=== PATIENT | female | born 1990 | race Two or more races ===

== ENCOUNTER 2023-05-11 08:27 | Outpatient (OUT) | payer OTHER, SELFPAY ==
[2023-05-11 08:56] LABS: Basophils Percent Auto 0.4 % (0.2-2.0); Eosinophils Absolute Auto 0.1 10^3/uL (0.0-0.7); Eosinophils Percent Auto 1.3 % (0.9-7.0); Hematocrit 32.5 % (36.0-48.0); Hemoglobin 10.8 g/dL (12.0-16.0); Immature Granulocytes Abs Auto 0.03 10^3/uL (0.00-0.03); Immature Granulocytes Pct Auto 0.3 % (0.0-0.5); Lymphocytes Absolute Auto 1.8 10^3/uL (1.2-3.8); Lymphocytes Percent Auto 18.9 % (20.5-60.0); Mean Corpuscular HGB Conc 33.2 g/dL (29.9-35.2); Mean Corpuscular Hemoglobin 30.9 pg (26.7-34.0); Mean Corpuscular Volume 93.1 fL (81.0-99.0); Mean Platelet Volume 9.7 fL (9.5-13.5); Monocytes Absolute Auto 0.6 10^3/uL (0.3-0.8); Monocytes Percent Auto 5.7 % (1.7-12.0); Neutrophils Absolute Auto 7.2 10^3/uL (1.4-6.5); Neutrophils Percent Auto 73.4 % (43.0-75.0); Platelet Count 279 10^3/uL (150-450); Red Blood Count 3.49 10^6/uL (4.20-5.40); Red Cell Distribution Width 12.9 % (11.0-15.0); White Blood Count 9.8 10^3/uL (4.0-11.0)
[2023-05-11 09:08] LABS: Glucose 1 Hour 123 mg/dL
== END 2023-05-11 08:28 ==
LOC: LAB 08:27
PROVIDERS: Visit Provider Physician Assistant
DX: Z34.90 Encounter for supervision of normal pregnancy, unspecified, unspecified trimester (principal)
CPT/HCPCS: 36415; 82950; 85025

== ENCOUNTER 2023-06-29 17:17 | Outpatient (OUT) | payer OTHER, SELFPAY ==
--- NOTE | 2023-06-29 17:05 | US_ITS ---
[address] [address] Patient Name: SUYAPA STEPHENSON MRN: [id number] date: 1990 Sex: F Assigned Patient Location: [facility] Current Patient Location: Accession/Order Number: [id number] Exam Date: 06/29/2023 17:06 Report Date: 07/01/2023 15:25 At the request of: JASON SALGADO Procedure: US OB BPP w non-stress EXAMINATION: US OB BPP w non-stress HISTORY: INCONSISTENT SIZE FOR DATES COMPARISON: Ultrasound transvaginal 01/09/2023 TECHNIQUE: Ultrasound biophysical profile was performed in the radiology department. BREATHING MOVEMENTS: 2.0 GROSS BODY MOVEMENTS: 2.0 TONE: 2.0 QUALITATIVE AMNIOTIC FLUID VOLUME: 2.0 PRESENTATION: CEPHALIC HEART RATE: 138.5 bpm bpm. AMNIOTIC FLUID VOLUME: 11.1 cm GESTATIONAL AGE: 32 weeks 6 days CONCLUSION: Total biophysical profile score 8.0. Electronically authenticated by: MEDARDO DOSHI Date: 07/01/2023 15:25
[2023-06-29 17:27] VITALS: BP 117/73; PULSE 82
== END 2023-06-29 17:46 | disposition home or self-care (01) ==
LOC: US 17:18 → FBC 17:19
PROVIDERS: Visit Provider Obstetrics & Gynecology
DX: O26.843 Uterine size-date discrepancy, third trimester (principal); Z3A.32 32 weeks gestation of pregnancy
CPT/HCPCS: 76818

== ENCOUNTER 2023-07-02 16:51 | Outpatient (OUT) | payer OTHER, SELFPAY ==
[2023-07-02 17:16] VITALS: BP 122/58; PULSE 78
== END 2023-07-02 18:09 | disposition home or self-care (01) ==
LOC: FBCO 16:54 → FBC 17:07
PROVIDERS: Visit Provider Obstetrics & Gynecology
DX: O26.893 Other specified pregnancy related conditions, third trimester (principal); Z3A.33 33 weeks gestation of pregnancy
CPT/HCPCS: 59025

== ENCOUNTER 2023-07-06 17:00 | Outpatient (OUT) | payer OTHER, SELFPAY ==
--- NOTE | 2023-07-06 17:00 | US_ITS ---
[address] [address] Patient Name: SUYAPA STEPHENSON MRN: [id number] date: 1990 Sex: F Assigned Patient Location: [facility] Current Patient Location: Accession/Order Number: [id number] Exam Date: 07/06/2023 17:06 Report Date: 07/07/2023 15:04 At the request of: JASON SALGADO Procedure: US OB BPP w non-stress EXAMINATION: US OB BPP w non-stress HISTORY: INCONSISTENT SIZE FOR DATES COMPARISON: Ultrasound biophysical 06/29/2023 TECHNIQUE: Ultrasound biophysical profile was performed in the radiology department. BREATHING MOVEMENTS: 2.0 GROSS BODY MOVEMENTS: 2.0 TONE: 2.0 QUALITATIVE AMNIOTIC FLUID VOLUME: 2.0 PRESENTATION: CEPHALIC HEART RATE: 149.2 bpm bpm. AMNIOTIC FLUID VOLUME: 14.9 cm GESTATIONAL AGE: 34 weeks 2 days CONCLUSION: Total biophysical profile score 8.0. Electronically authenticated by: MEDARDO DOSHI Date: 07/07/2023 15:04
[2023-07-06 17:24] VITALS: BP 144/84; PULSE 83
== END 2023-07-06 17:47 | disposition home or self-care (01) ==
LOC: US 17:08 → FBC 17:09
PROVIDERS: Visit Provider Obstetrics & Gynecology
DX: O26.849 Uterine size-date discrepancy, unspecified trimester (principal); O16.9 Unspecified maternal hypertension, unspecified trimester; Z3A.00 Weeks of gestation of pregnancy not specified
CPT/HCPCS: 76818

== ENCOUNTER 2023-07-09 16:52 | Outpatient (OUT) | payer OTHER, SELFPAY ==
[2023-07-09 16:58] VITALS: BP 111/57; PULSE 86
== END 2023-07-09 17:35 | disposition home or self-care (01) ==
LOC: FBCO 16:52 → FBC 16:53
PROVIDERS: Visit Provider Obstetrics & Gynecology
DX: O26.843 Uterine size-date discrepancy, third trimester (principal); Z3A.00 Weeks of gestation of pregnancy not specified
CPT/HCPCS: 59025

== ENCOUNTER 2023-07-13 17:05 | Outpatient (OUT) | payer OTHER, SELFPAY ==
--- NOTE | 2023-07-13 | US_ITS ---
[address] [address] Patient Name: SUYAPA STEPHENSON MRN: [id number] date: 1990 Sex: F Assigned Patient Location: [facility] Current Patient Location: Accession/Order Number: [id number] Exam Date: 07/13/2023 17:08 Report Date: 07/14/2023 15:08 At the request of: JASON SALGADO Procedure: US OB growth EXAMINATION: US OB growth HISTORY: SIZE INCONSISTENT WITH DATES O28.849 COMPARISON: No relevant comparison available. FINDINGS: Heart Rate: 150.8 bpm Number: 1.0 Position: CEPHALIC Amniotic Fluid Volume: 16.2 cm Maximum Vertical Pocket: 6.4 cm BIOMETRY: BPD: 8.6 cm cm; 34 weeks 6 days HC: 31.7 cmcm; 35 weeks 4 days AC: 32.4 cm cm; 36 weeks 3 days FL: 6.6 cm cm; 34 weeks 0 days EFW: 2700.0 grams; 55% FL/AC: 20.4 FL/BPD: 76.5 HC/AC: 1.0 GESTATIONAL AGE: Age by EDC: 35 weeks 2 days NATE by EDC 08/15/2023: Age by US: 35 weeks 2 days NATE by US: 08/15/2023 US/US OB growth IMPRESSION: 1. Single live intrauterine with growth detailed above. Electronically authenticated by: MEDADRO DOSHI Date: 07/14/2023 15:08
--- NOTE | 2023-07-13 | US_ITS ---
[address] [address] Patient Name: SUYAPA STEPHENSON MRN: [id number] date: 1990 Sex: F Assigned Patient Location: [facility] Current Patient Location: Accession/Order Number: [id number] Exam Date: 07/13/2023 17:08 Report Date: 07/14/2023 15:10 At the request of: JASON SALGADO Procedure: US OB BPP w non-stress EXAMINATION: US OB BPP w non-stress HISTORY: SIZE INCONSISTENT WITH DATES O26.849 COMPARISON: Ultrasound OB biophysical 07/06/2023 TECHNIQUE: Ultrasound biophysical profile was performed in the radiology department. BREATHING MOVEMENTS: 2 GROSS BODY MOVEMENTS: 2 TONE: 2 QUALITATIVE AMNIOTIC FLUID VOLUME: 2 PRESENTATION: CEPHALIC HEART RATE: 150.8 bpm bpm. AMNIOTIC FLUID VOLUME: 16.2 cm GESTATIONAL AGE: 35 weeks 2 days CONCLUSION: Total biophysical profile score 8. Electronically authenticated by: MEDARDO DOSHI Date: 07/14/2023 15:10
[2023-07-13 17:46] VITALS: BP 145/83; PULSE 80
== END 2023-07-13 18:15 | disposition home or self-care (01) ==
LOC: US 17:06 → FBC 17:08
PROVIDERS: Visit Provider Obstetrics & Gynecology
DX: O26.843 Uterine size-date discrepancy, third trimester (principal); Z3A.35 35 weeks gestation of pregnancy
CPT/HCPCS: 76816; 76818

== ENCOUNTER 2023-07-16 19:26 | Inpatient (IN) | payer OTHER, SELFPAY ==
[2023-07-16] VITALS (15 sets, daily range): BP systolic 113–190; BP diastolic 66–96; PULSE 67–86; RESP 16–20; TEMP 36.3–36.8; O2SAT 97–98
[2023-07-16] MEDS: LABETALOL HCL 200 MG TABLET PO (18:27)
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
[2023-07-16 18:37] LABS: Basophils Percent Auto 0.4 % (0.2-2.0); Eosinophils Absolute Auto 0.1 10^3/uL (0.0-0.7); Eosinophils Percent Auto 0.9 % (0.9-7.0); Hematocrit 33.1 % (36.0-48.0); Hemoglobin 11.2 g/dL (12.0-16.0); Immature Granulocytes Abs Auto 0.02 10^3/uL (0.00-0.03); Immature Granulocytes Pct Auto 0.2 % (0.0-0.5); Lymphocytes Absolute Auto 2.2 10^3/uL (1.2-3.8); Lymphocytes Percent Auto 26.7 % (20.5-60.0); Mean Corpuscular HGB Conc 33.8 g/dL (29.9-35.2); Mean Corpuscular Hemoglobin 31.5 pg (26.7-34.0); Mean Platelet Volume 10.5 fL (9.5-13.5); Monocytes Absolute Auto 0.9 10^3/uL (0.3-0.8); Monocytes Percent Auto 11.1 % (1.7-12.0); Neutrophils Absolute Auto 4.9 10^3/uL (1.4-6.5); Neutrophils Percent Auto 60.7 % (43.0-75.0); Platelet Count 236 10^3/uL (150-450); Red Blood Count 3.56 10^6/uL (4.20-5.40); Red Cell Distribution Width 13.2 % (11.0-15.0); White Blood Count 8.1 10^3/uL (4.0-11.0)
[2023-07-16 18:50] LABS: Alanine Aminotransferase 22 U/L (14-59); Aspartate Amino Transferase 15 U/L (15-37); Lactate Dehydrogenase 252 U/L (81-234); Uric Acid 4.7 mg/dL (2.6-6.0)
[2023-07-16 18:52] LABS: Partial Thromboplastin Time 27.1 sec (22.3-36.2); Prothrombin Time 9.8 sec (9.0-11.6)
[2023-07-16 18:54] LABS: INR <0.93
[2023-07-16] MEDS: BETAMETHASONE ACE/BETAMETHASONE SOD PHOS 30 MG/5 ML 12 MG IM (19:42)
[2023-07-16 19:50] LABS: Bilirubin Urine NEGATIVE (NEGATIVE); Blood Urine NEGATIVE (NEGATIVE); Clarity Urine CLEAR (CLEAR); Color Urine LT. YELLOW (YELLOW); Glucose Urine UA NEGATIVE (NEGATIVE); Ketones Urine NEGATIVE (NEGATIVE); Leukocyte Esterase Urine NEGATIVE (NEGATIVE); Nitrite Urine NEGATIVE (NEGATIVE); Protein Urine NEGATIVE (NEG/TRACE); Urobilinogen Urine 0.2 EU/dL (0.2-1.0); pH Urine 6.5 (5.0-9.0)
[2023-07-16 19:58] LABS: Bacteria Urine TRACE #/HPF (NONE SEEN); Mucus Urine NONE SEEN (NONE SEEN); RBC Urine 0-2 #/HPF (0-2); Squamous Epithelial Cell Urine MODERATE #/LPF (NONE/RARE); WBC Urine 0-2 #/HPF (NONE SEEN)
[2023-07-16 19:59] LABS: Cast Seen? NONE SEEN #/LPF (NONE SEEN); Crystals Seen? None Seen #/HPF (None Seen); Urine Culture Indicated NO
--- NOTE | 2023-07-16 19:59 | PM.OBHP ---
OB - H&P: HPI History of Present Illness Chief complaint: FBC NST : 2 Para: 1 Date of last menstrual period: 10/09/2022 Gestational age based on last menstrual period: 35 2/7wks Indications for induction: maternal hypertension (chronic htn with superimposed severe preeclampsia) History of Present Dating criteria: LMP confirmed by 1st trimester US care: good care Ultrasounds: normal 1st trimester US complications: preeclampsia (severe) Medical complications OB: none Review of Systems ROS Status of ROS 10 or more systems reviewed and unremarkable except as noted in history and below Meds Home Medications and Allergies Home Medications Medication Instructions Recorded Confirmed Type aspirin 81 mg capsule 81 mg PO DAILY 06/29/23 06/29/23 History labetalol 100 mg tablet 100 mg PO BID 06/29/23 06/29/23 History vit no.95-ferrous 1 tab PO DAILY 06/29/23 06/29/23 History fumarate 28 mg-folic acid 800 mcg tablet ( Multivitamins) Allergies Allergy/AdvReac Type Severity Reaction Status Date / Time coconut Allergy Verified 06/29/23 17:21 rodolfo Allergy Verified 06/29/23 17:21 peanut Allergy Verified 06/29/23 17:21 pecan nut Allergy Verified 06/29/23 17:21 Exam Constitutional Vital Signs, click to edit/add: Last Vital Signs Temp 98.2 F 07/16/23 19:35 Pulse 86 07/16/23 19:35 Resp 18 07/16/23 19:35 BP 139/95 H 07/16/23 19:35 Documenting provider has reviewed patient's vital signs: yes Common normals: no apparent distress Respiratory Common normals: normal respiratory effort and clear to auscultation bilaterally Cardio Common normals: regular rate and regular rhythm GI Common normals: Normal to inspection, nondistended, normoactive bowel sounds present Common normals: no CVA tenderness Extremity Common normals: no calf tenderness Results Labs Labs: Short CBC 07/16/23 Range/Units 18:30 WBC 8.1 (4.0-11.0) 10^3/uL Hgb 11.2 L (12.0-16.0) g/dL Hct 33.1 L (36.0-48.0) % Plt Count 236 (150-450) 10^3/uL Liver Function 07/16/23 Range/Units 18:30 AST 15 (15-37) U/L ALT 22 (14-59) U/L Urine 07/16/23 Range/Units 19:28 Urine Color Lt. yellow (YELLOW) Urine Clarity Clear (CLEAR) Urine pH 6.5 (5.0-9.0) Ur Specific [place] 1.010 (1.005-1.025) Urine Protein Negative (NEG/TRACE) mg/dL Urine Glucose (UA) Negative (NEGATIVE) mg/dL OB - A/P Assessment and Plan (1) Chronic hypertension affecting : (2) Severe pre-eclampsia: Plan iup at 35 2/7wks, chronic htn with superimposed severe preeclampsia-pt presents for nst with elevated bp, pt was given labetolol oral, pt continued to have elevated bp, pt complains of vision changes, denies mejia, epigastric pain. pih panel wnl, discussed with patient, will perform section, mmc reviewed, procedure reviewed, celestone given, will start magnesium for 24hrs after delivery
[2023-07-16] MEDS: CITRIC ACID/SODIUM CITRATE 30 ML SOLUTION ORACIT SHOHL'S SOLN PO (20:12)
[2023-07-16] MEDS: LACTATED RINGER'S SOLUTION 1,000 ML 125 ML IV (20:13)
--- NOTE | 2023-07-16 20:15 | PC.NURSE ---
1899: DR SALGADO CALLED AND BP'S REPORTED WITH LAB RESULTS ALSO- ORDERS RECEIVED TO ADMIT AND PREPARE FOR DELIVERY. REPORT TO Annie PANTOJA RN. 1914; TRANSFERRED TO RM 251 AND ADMITTED.
[2023-07-16] MEDS: FAMOTIDINE/PF 20 MG/2 ML VIAL IV (20:26)
[2023-07-16] MEDS: CEFAZOLIN SODIUM/DEXTROSE,ISO 2 GM/50 ML PIGGYBACK IV (20:27)
[2023-07-16] MEDS: LACTATED RINGER'S SOLUTION 1,000 ML 50 ML IV (21:10)
--- NOTE | 2023-07-16 21:35 | PM.ONB ---
Brief Operative Note Date of procedure: 07/16/23 Pre-op diagnosis: iup at 35 2/7wks, chronic htn with superimposed preeclampsia, previous c/s Post-op diagnosis: same as pre-op Procedure: NAME OF PROCEDURE: [ section with bilateral salpingectomy ] PROCEDURE: Patient was taken back to the Operating Room where she was given a spinal anesthesia with Duramorph without difficulty. She was prepped and draped in the normal sterile fashion. A Pfannenstiel skin incision was then made 2?cm above the symphysis pubis and carried down to underlying rectus fascia using a Bovie. The fascia was incised in the midline and extended laterally using Gary scissors. Two Danielle clamps were placed on the superior aspect of the fascia and dissected off the underlying rectus muscles. The same was performed on the inferior aspect as well. The muscles were then in the midline. Peritoneum was identified and entered bluntly. The peritoneum was then extended superiorly and inferiorly with good visualization of the bladder. The bladder blade was inserted. Vesicouterine peritoneum was identified, tented up, and entered with Metzenbaum scissors. A bladder flap was then created digitally. The bladder blade was reinserted. A low transverse incision was made on the patient's uterus and extended laterally digitally. The was then delivered atraumatically after the bladder blade was removed in the cephalic position. The cord was clamped and cut. Cord blood was obtained. The infant was handed off to awaiting team. The patient's placenta was spontaneously delivered. The uterus was then exteriorized. The uterus was cleared of all clots and debris. The bladder blade was reinserted. The patient's uterine incision was closed using #0 Vicryl in a running lock fashion. Excellent hemostasis was assured.? The rt tube was identified and grasped with babock, the ligasure was used to transect and ligate the tube in its entirity, this was done on the contralateral side as well. The uterus was then returned to the patient's abdomen. The patient's abdomen was copiously irrigated using warm saline. Peritoneal gutters were cleared of all clots and debris. Again excellent hemostasis was assured. The patient's fascia was closed using #0 Vicryl in a running fashion. The patient's skin was closed using 4-0 Vicryl subcuticularly. The patient tolerated the procedure well. Sponge, lap, and needle counts were correct x2. The patient was taken to the Recovery Room in stable condition. Anesthesia: spinal Surgeon: Jose Hinson Importer Exporter: VIKI GLYNN Estimated blood loss (mL): 575 Pathology: other (tubes and placenta) Condition: stable Disposition: PACU
--- NOTE | 2023-07-16 21:41 | P.OBPRC_ITS ---
Procedure Pre-op/Post-op diagnoses: Pre-Op/Post-Op Diagnoses Operation Date: 07/16/23 20:20 <No data on this case meets the specified criteria> Procedure: Procedures Operation Date: 07/16/23 20:20 Actual Procedure Side Surgeon p BILATERAL SALPINGECTOMY Not Applicable Jose Hinson DO Nursing Service Director: VIKI GLYNN Estimated blood loss (mL): 575 Disposition: PACU Anesthesia type: Spinal
[2023-07-16] MEDS: 0.9 % SODIUM CHLORIDE 1,000 ML 100 ML IV (21:45)
--- NOTE | 2023-07-16 22:03 | PM.EN ---
Event Note Event Note: Photography And Print[employer] Curator Note: i first assisted Dr Hinson with repeat section with bilateral salpingectomy . I assisted as directed by physician. I independently closed the SQ layer with 3-0 vicryl on C-T needle. I then independently closed the incision with 4-0 vicryl on a Anjum needle without difficulty. Hemostasis noted at completion of closure. Patient tolerated procedure well.
[2023-07-16] MEDS: OXYTOCIN/0.9 % SODIUM CHLORIDE 20 UNITS/1,000 ML PLAST..BAG 200 UNIT IV (22:51)
--- NOTE | 2023-07-16 23:12 | PC.NURSE ---
2312- Code esteban and zaina warning in effect; pt moved to PACU and accompanied by Demetrius Acosta RN. 2358- Torna warning all clear. Pt back on unit accompanied by Demetrius Acosta RN.
[2023-07-16 23:49] LABS: Estimated GFR (African America >60 (>=60); Estimated GFR (Non-African Ame >60 (>=60)
[2023-07-17] VITALS (95 sets, daily range): BP systolic 113–153; BP diastolic 59–86; PULSE 59–87; RESP 10–26; TEMP 36.2–36.7; O2SAT 96–100
--- NOTE | 2023-07-17 | PC.NURSE ---
Report received and care assumed from Demetrius Acosta, [employer]ULTANTS INTERN at this time.
[2023-07-17] MEDS: CEFAZOLIN SODIUM/DEXTROSE,ISO 2 GM/50 ML PIGGYBACK IV (05:26)
--- NOTE | 2023-07-17 07:40 | W.PC.ACHO ---
Registration Status: ADM IN Primary Language: Turkish Preferred Language: Uzbek Active Medications Generic Name Dose Route Start Last Admin Trade Name Freq PRN Reason Stop Dose Admin Al Hydroxide/Mg Hydroxide 2,400 mg 07/16/23 21:36 Magnesium Hydroxide 2,400 Mg/10 Ml Oral.Susp PO Q6H PRN Dyspepsia Carboprost Tromethamine 250 mcg 07/16/23 19:20 Carboprost Tromethamine 250 Mcg/Ml 1 Ml Vial IM 07/18/23 19:20 Q15M PRN Bleeding Diphenhydramine HCl 25 mg 07/16/23 21:36 Diphenhydramine Hcl 50 Mg/Ml (1ml) Vial IV 07/17/23 21:38 Q6H PRN Itching Docusate Sodium 100 mg 07/17/23 09:00 Docusate Sodium 100 Mg Capsule PO BID GARRET Enoxaparin Sodium 40 mg 07/17/23 08:00 Enoxaparin Sodium 40 Mg/0.4 Ml Syringe SUBQ Q24H GARRET Cefazolin Sodium/Dextrose 2 gm in 50 mls @ 100 mls/hr 07/16/23 19:30 07/17/23 05:26 Ancef IV 100 mls/hr Q6H GARRET 100 mls/hr Administration Lactated Ringer's 1,000 mls @ 125 mls/hr 07/16/23 19:30 07/16/23 20:13 Lactated Ringers IV 125 mls/hr .Q8H GARRET Administration Lactated Ringer's 1,000 mls @ 50 mls/hr 07/16/23 21:15 07/16/23 21:10 Lactated Ringers IV 50 mls/hr .Q20H GARRET Administration Lactated Ringer's 1,000 mls @ 125 mls/hr 07/16/23 21:45 Lactated Ringers IV .Q8H GARRET Sodium Chloride 1,000 mls @ 100 mls/hr 07/16/23 23:15 Sodium Chloride 0.9% 1,000 Ml IV 07/17/23 09:14 ONCE ONE Ibuprofen 800 mg 07/16/23 21:36 Ibuprofen 400 Mg Tablet PO Q8H PRN Pain Ketorolac Tromethamine 30 mg 07/16/23 23:17 Ketorolac Tromethamine 30 Mg/Ml Vial IVP 07/18/23 21:37 Q6H PRN Pain Methylergonovine Maleate 0.2 mg 07/16/23 19:20 Methylergonovine Maleate 0.2 Mg/Ml Ampule IM 07/18/23 19:20 ONCE PRN Uterine Contractility/Contract Methylergonovine Maleate 0.2 mg 07/16/23 19:20 Methylergonovine Maleate 0.2 Mg Tablet PO 07/18/23 19:20 Q4H PRN Uterine Contractility/Contract Misoprostol 1,000 mcg 07/16/23 19:20 Misoprostol 100 Mcg Tablet ND 07/18/23 19:20 ONCE PRN Uterine Bleeding Nalbuphine HCl 10 mg 07/16/23 21:36 Nalbuphine Hcl 10 Mg/Ml Ampule IV 07/17/23 21:38 Q3H PRN Itching Ondansetron HCl 4 mg 07/16/23 21:36 Ondansetron Pf 4 Mg/2 Ml Vial IV Q6H PRN Nausea And Vomiting Ondansetron HCl 4 mg 07/16/23 21:36 Ondansetron 4 Mg Rapdis Tablet PO Q6H PRN Nausea And Vomiting Oxycodone/Acetaminophen 1 tab 07/16/23 21:36 Oxycodone Hcl/Acetaminophen 1 Tab Tablet PO Q4H PRN Pain Scale 4-6 Oxycodone/Acetaminophen 2 tab 07/16/23 21:36 Oxycodone Hcl/Acetaminophen 1 Tab Tablet PO Q4H PRN Pain Scale 7-10 Senna 17.2 mg 07/16/23 20:00 Sennosides 8.6 Mg Tablet PO QHS PRN Constipation Simethicone 80 mg 07/16/23 21:36 Simethicone 80 Mg Tab.Chew PO QID PRN Abdominal Distention Diet Category Date Time Status Regular Consistency Diet Diet 07/17/23 Breakfast Active IV Insertion/Site Date of IV Line Insertion [ 07/16/23 Short PIV (<1.75 in) 20g right Forearm] Date of IV Line Insertion [ 07/16/23 Short PIV (<1.75 in) 20g left Hand] Date of IV Line Insertion [ 07/16/23 Short PIV (<1.75 in) 20g left Hand] IV Insertion Time [Short PIV ( 19:53 <1.75 in) 20g right Forearm] IV Insertion Time [Short PIV ( 19:53 <1.75 in) 20g left Hand] Neurology Patient orientation (short person,place,time,situation list) Respiratory Lung sounds [Bilateral clear Throughout] Lung sounds [Bilateral clear Throughout] Lung sounds [Bilateral clear Throughout] Lung sounds [Bilateral clear Throughout] Lung sounds [Bilateral clear Throughout] Pulse Oximetry 97 Pulse Oximetry 96 Pulse Oximetry 97 Pulse Oximetry 97 Pulse Oximetry 98 Pulse Oximetry 99 Pulse Oximetry 97 Pulse Oximetry 98 Pulse Oximetry 97 Pulse Oximetry 98 Pulse Oximetry 98 Pulse Oximetry 98 Pulse Oximetry 97 Pulse Oximetry 98 Pulse Oximetry 96 Pulse Oximetry 98 Pulse Oximetry 98 Pulse Oximetry 99 Pulse Oximetry 97 Pulse Oximetry 98 Pulse Oximetry 98 Pulse Oximetry 99 Pulse Oximetry 98 Pulse Oximetry 96 Pulse Oximetry 98 Pulse Oximetry 98 Pulse Oximetry 98 Pulse Oximetry 98 Pulse Oximetry 99 Pulse Oximetry 98 Pulse Oximetry 98 Pulse Oximetry 98 Pulse Oximetry 99 Pulse Oximetry 97 Pulse Oximetry 98 Pulse Oximetry 99 Pulse Oximetry 98 Pulse Oximetry 99 Pulse Oximetry 99 Pulse Oximetry 99 Pulse Oximetry 98 Pulse Oximetry 97 Pulse Oximetry 97 Pulse Oximetry 98 Pulse Oximetry 98 Pulse Oximetry 98 Pulse Oximetry 99 Pulse Oximetry 100 Pulse Oximetry 97 Pulse Oximetry 98 Pulse Oximetry 97 Pulse Oximetry 99 Pulse Oximetry 98 Pulse Oximetry 98 Pulse Oximetry 98 Pulse Oximetry 98 Pulse Oximetry 99 Pulse Oximetry 98 Pulse Oximetry 98 Pulse Oximetry 98 Pulse Oximetry 97 Pulse Oximetry 97 Pulse Oximetry 98 Pulse Oximetry 98 Oxygen Delivery Method Room Air Oxygen Delivery Method Room Air Oxygen Delivery Method Room Air Oxygen Delivery Method Room Air Oxygen Delivery Method Room Air Cardiology Heart Sounds Regular Catheter Urinary Catheter Date of 07/16/23 Insertion [Urethral] Urinary Catheter Time of 22:04 Insertion [Urethral]
[2023-07-17] MEDS: 0.9 % SODIUM CHLORIDE 1,000 ML 75 ML IV ×2 (08:16→20:30)
[2023-07-17] MEDS: MAGNESIUM SULFATE IN WATER 50 ML IV (08:17)
--- NOTE | 2023-07-17 11:15 | PM.OBPN ---
OB - PN: Subj Subjective Patient comments: no complaints and pain well controlled [place] status: doing well Exam Constitutional Vital Signs, click to edit/add: Last Vital Signs Temp 97.4 F L 07/16/23 21:53 Pulse 65 07/17/23 10:40 Resp 19 07/17/23 03:00 BP 137/75 07/17/23 10:40 Pulse Ox 97 07/17/23 03:00 O2 Del Method Room Air 07/17/23 04:15 Documenting provider has reviewed patient's vital signs: yes Common normals: no apparent distress Respiratory Common normals: normal respiratory effort and clear to auscultation bilaterally Cardio Common normals: regular rate and regular rhythm GI Common normals: Normal to inspection, nondistended, normoactive bowel sounds present Extremity Common normals: no clubbing, cyanosis or edema and no calf tenderness Results Labs Labs: Short CBC 07/16/23 Range/Units 18:30 WBC 8.1 (4.0-11.0) 10^3/uL Hgb 11.2 L (12.0-16.0) g/dL Hct 33.1 L (36.0-48.0) % Plt Count 236 (150-450) 10^3/uL BMP 07/16/23 18:30 Creatinine 0.97 Liver Function 07/16/23 Range/Units 18:30 AST 15 (15-37) U/L ALT 22 (14-59) U/L Urine 07/16/23 Range/Units 19:28 Urine Color Lt. yellow (YELLOW) Urine Clarity Clear (CLEAR) Urine pH 6.5 (5.0-9.0) Ur Specific [place] 1.010 (1.005-1.025) Urine Protein Negative (NEG/TRACE) mg/dL Urine Glucose (UA) Negative (NEGATIVE) mg/dL OB - PN: A/P Assessment and Plan (1) Chronic hypertension affecting : (2) Severe pre-eclampsia: Assessment and Plan: cont magnesium for 24hrs Plan - day: 1 Plan: routine postop care Time Spent with Patient Time: Total time spent is greater than 50% in coordination of care (as documented) at patient's floor/unit and/or counseling patient: Total time spent with greater than 50% in coordination of care (as documented) at patient's floor/unit and/or counseling patient: less than 15 minutes
[2023-07-17] MEDS: KETOROLAC TROMETHAMINE 30 MG/ML VIAL IVP (16:49)
[2023-07-17] MEDS: ENOXAPARIN SODIUM 40 MG/0.4 ML SYRINGE SUBQ (16:50)
--- NOTE | 2023-07-17 18:56 | PC.NURSE ---
iv INTAKE: 1312 ML
--- NOTE | 2023-07-17 18:57 | PC.NURSE ---
IV INTAKE: 1312 MLS
--- NOTE | 2023-07-17 19:36 | W.PC.ACHO ---
Registration Status: ADM IN Primary Language: Italian Preferred Language: Malian Active Medications Generic Name Dose Route Start Last Admin Trade Name Freq PRN Reason Stop Dose Admin Al Hydroxide/Mg Hydroxide 2,400 mg 07/16/23 21:36 Magnesium Hydroxide 2,400 Mg/10 Ml Oral.Susp PO Q6H PRN Dyspepsia Calcium Gluconate 1,000 mg 07/17/23 08:30 Calcium Gluconate 1,000 Mg/10 Ml Vial IVP ONCE PRN toxicity Carboprost Tromethamine 250 mcg 07/16/23 19:20 Carboprost Tromethamine 250 Mcg/Ml 1 Ml Vial IM 07/18/23 19:20 Q15M PRN Bleeding Diphenhydramine HCl 25 mg 07/16/23 21:36 Diphenhydramine Hcl 50 Mg/Ml (1ml) Vial IV 07/17/23 21:38 Q6H PRN Itching Docusate Sodium 100 mg 07/17/23 09:00 07/17/23 16:57 Docusate Sodium 100 Mg Capsule PO Not Given BID GARRET Enoxaparin Sodium 40 mg 07/17/23 08:00 07/17/23 16:50 Enoxaparin Sodium 40 Mg/0.4 Ml Syringe SUBQ 40 mg Q24H GARRET Administration Cefazolin Sodium/Dextrose 2 gm in 50 mls @ 100 mls/hr 07/16/23 19:30 07/17/23 05:26 Ancef IV 100 mls/hr Q6H GARRET 100 mls/hr Administration Lactated Ringer's 1,000 mls @ 125 mls/hr 07/16/23 19:30 07/16/23 20:13 Lactated Ringers IV 125 mls/hr .Q8H GARRET Administration Lactated Ringer's 1,000 mls @ 50 mls/hr 07/16/23 21:15 07/16/23 21:10 Lactated Ringers IV 50 mls/hr .Q20H GARRET Administration Lactated Ringer's 1,000 mls @ 125 mls/hr 07/16/23 21:45 Lactated Ringers IV .Q8H GARRET Sodium Chloride 1,000 mls @ 75 mls/hr 07/17/23 08:00 07/17/23 08:16 Sodium Chloride 0.9% 1,000 Ml IV 75 mls/hr Q12H GARRET Administration Magnesium Sulfate 40 gm in 1,000 mls @ 50 mls/hr 07/17/23 08:30 Magnesium Sulf 40 G/1,000 Ml IV Q13H GARRET Ibuprofen 800 mg 07/16/23 21:36 Ibuprofen 400 Mg Tablet PO Q8H PRN Pain Ketorolac Tromethamine 30 mg 07/16/23 23:17 07/17/23 16:49 Ketorolac Tromethamine 30 Mg/Ml Vial IVP 07/18/23 21:37 30 mg Q6H PRN Administration Pain Methylergonovine Maleate 0.2 mg 07/16/23 19:20 Methylergonovine Maleate 0.2 Mg/Ml Ampule IM 07/18/23 19:20 ONCE PRN Uterine Contractility/Contract Methylergonovine Maleate 0.2 mg 07/16/23 19:20 Methylergonovine Maleate 0.2 Mg Tablet PO 07/18/23 19:20 Q4H PRN Uterine Contractility/Contract Misoprostol 1,000 mcg 07/16/23 19:20 Misoprostol 100 Mcg Tablet [place] 07/18/23 19:20 ONCE PRN Uterine Bleeding Nalbuphine HCl 10 mg 07/16/23 21:36 Nalbuphine Hcl 10 Mg/Ml Ampule IV 07/17/23 21:38 Q3H PRN Itching Ondansetron HCl 4 mg 07/16/23 21:36 Ondansetron Pf 4 Mg/2 Ml Vial IV Q6H PRN Nausea And Vomiting Ondansetron HCl 4 mg 07/16/23 21:36 Ondansetron 4 Mg Rapdis Tablet PO Q6H PRN Nausea And Vomiting Oxycodone/Acetaminophen 1 tab 07/16/23 21:36 Oxycodone Hcl/Acetaminophen 1 Tab Tablet PO Q4H PRN Pain Scale 4-6 Oxycodone/Acetaminophen 2 tab 07/16/23 21:36 Oxycodone Hcl/Acetaminophen 1 Tab Tablet PO Q4H PRN Pain Scale 7-10 Senna 17.2 mg 07/16/23 20:00 Sennosides 8.6 Mg Tablet PO QHS PRN Constipation Simethicone 80 mg 07/16/23 21:36 Simethicone 80 Mg Tab.Chew PO QID PRN Abdominal Distention Diet Category Date Time Status Regular Consistency Diet Diet 07/17/23 Breakfast Active IV Insertion/Site Date of IV Line Insertion [ 07/16/23 Short PIV (<1.75 in) 20g right Forearm] Date of IV Line Insertion [ 07/16/23 Short PIV (<1.75 in) 20g left Hand] Date of IV Line Insertion [ 07/16/23 Short PIV (<1.75 in) 20g left Hand] IV Insertion Time [Short PIV ( 19:53 <1.75 in) 20g right Forearm] IV Insertion Time [Short PIV ( 19:53 <1.75 in) 20g left Hand] Respiratory Lung sounds [Bilateral clear Throughout] Lung sounds [Bilateral clear Throughout] Lung sounds [Bilateral clear Throughout] Lung sounds [Bilateral clear Throughout] Lung sounds [Bilateral clear Throughout] Pulse Oximetry 97 Pulse Oximetry 96 Pulse Oximetry 97 Pulse Oximetry 97 Pulse Oximetry 98 Pulse Oximetry 99 Pulse Oximetry 97 Pulse Oximetry 98 Pulse Oximetry 97 Pulse Oximetry 98 Pulse Oximetry 98 Pulse Oximetry 98 Pulse Oximetry 97 Pulse Oximetry 98 Pulse Oximetry 96 Pulse Oximetry 98 Pulse Oximetry 98 Pulse Oximetry 99 Pulse Oximetry 97 Pulse Oximetry 98 Pulse Oximetry 98 Pulse Oximetry 99 Pulse Oximetry 98 Pulse Oximetry 96 Pulse Oximetry 98 Pulse Oximetry 98 Pulse Oximetry 98 Pulse Oximetry 98 Pulse Oximetry 99 Pulse Oximetry 98 Pulse Oximetry 98 Pulse Oximetry 98 Pulse Oximetry 99 Pulse Oximetry 97 Pulse Oximetry 98 Pulse Oximetry 99 Pulse Oximetry 98 Pulse Oximetry 99 Pulse Oximetry 99 Pulse Oximetry 99 Pulse Oximetry 98 Pulse Oximetry 97 Pulse Oximetry 97 Pulse Oximetry 98 Pulse Oximetry 98 Pulse Oximetry 98 Pulse Oximetry 99 Pulse Oximetry 100 Pulse Oximetry 97 Pulse Oximetry 98 Pulse Oximetry 97 Pulse Oximetry 99 Pulse Oximetry 98 Pulse Oximetry 98 Pulse Oximetry 98 Pulse Oximetry 98 Pulse Oximetry 99 Pulse Oximetry 98 Pulse Oximetry 98 Pulse Oximetry 98 Pulse Oximetry 97 Pulse Oximetry 97 Pulse Oximetry 98 Pulse Oximetry 98 Oxygen Delivery Method Room Air Oxygen Delivery Method Room Air Oxygen Delivery Method Room Air Oxygen Delivery Method Room Air Oxygen Delivery Method Room Air Oxygen Delivery Method Room Air Cardiology Heart Sounds Regular Bowels Bowel Pattern No Bowel Movement Catheter Urinary Catheter Date of 07/16/23 Insertion [Urethral] Urinary Catheter Time of 22:04 Insertion [Urethral]
[2023-07-17] MEDS: DOCUSATE SODIUM 100 MG CAPSULE PO (20:30)
--- NOTE | 2023-07-18 03:42 | PM.OBPN ---
OB - PN: Subj Subjective Patient comments: no complaints Exam Constitutional Vital Signs, click to edit/add: Last Vital Signs Temp 98.0 F 07/17/23 23:50 Pulse 82 07/17/23 23:50 Resp 18 07/17/23 23:50 BP 113/67 07/17/23 23:50 Pulse Ox 97 07/17/23 03:00 O2 Del Method Room Air 07/17/23 23:50 Documenting provider has reviewed patient's vital signs: yes Common normals: no apparent distress Respiratory Common normals: normal respiratory effort and clear to auscultation bilaterally Cardio Common normals: regular rate and regular rhythm GI Common normals: Normal to inspection, nondistended, normoactive bowel sounds present Extremity Common normals: no clubbing, cyanosis or edema and no calf tenderness OB - PN: A/P Assessment and Plan (1) Chronic hypertension affecting : (2) Severe pre-eclampsia: Plan - day: 1 Plan: routine postop care, discharge home and other (1wk) Time Spent with Patient Time: Total time spent is greater than 50% in coordination of care (as documented) at patient's floor/unit and/or counseling patient: Total time spent with greater than 50% in coordination of care (as documented) at patient's floor/unit and/or counseling patient: less than 15 minutes
[2023-07-18] MEDS: MAGNESIUM SULFATE IN WATER 40 GM/1,000 ML IV.SOLN IV (04:24)
[2023-07-18] MEDS: KETOROLAC TROMETHAMINE 30 MG/ML VIAL IVP (04:24)
[2023-07-18 04:30] VITALS: RESP 18; O2SAT 97
[2023-07-18 04:33] VITALS: BP 111/70; PULSE 78
[2023-07-18 08:56] VITALS: BP 138/65; PULSE 89
[2023-07-18 09:23] VITALS: RESP 18; TEMP 36.7
[2023-07-18] MEDS: IBUPROFEN 400 MG TABLET 800 MG PO (10:23)
[2023-07-18] MEDS: DOCUSATE SODIUM 100 MG CAPSULE PO (10:23)
--- NOTE | 2023-07-27 | DS_ITS ---
DISCHARGE DATE: ??07/27/2023 PRIMARY DIAGNOSES: 1.? Intrauterine at 35 2/7 weeks. 2.? Chronic hypertension with superimposed preeclampsia. 3.? Previous . PROCEDURE:? Repeat section with bilateral salpingectomy. HOSPITAL COURSE:? As expected.? Please see chart for full details.? LABORATORY DATA:? Please see chart. COMPLICATIONS:? None. DISCHARGE CONDITION:? Stable. CONSULTATION:? Anesthesia. DISCHARGE INSTRUCTIONS: 1.? Diet:? Regular. 2.? Medications: a.? Percocet 5/325 one to two p.o. every 4-6 hours p.r.n. pain. b.? Motrin 800 one p.o. every 8 hours p.r.n. pain. 3.? Followup in one week. Restrictions:? Pelvic rest for 6 weeks.? No heavy lifting.? May drive when pain free and no longer on narcotics. MTDD
== END 2023-07-18 12:24 | disposition home or self-care (01) | DRG 785 ==
LOC: FBCO 19:28 → FBC 19:28
PROVIDERS: Midwife; Admitting Provider Obstetrics & Gynecology; Visit Provider Obstetrics & Gynecology
PROC: 10D00Z1 Extraction of Products of Conception, Low, Open Approach (ICD-10-PCS; CPT 59514; principal; 2023-07-16 20:20)
DX: O11.4 Pre-existing hypertension with pre-eclampsia, complicating childbirth (principal); Z3A.35 35 weeks gestation of pregnancy; Z37.0 Single live birth; O10.02 Pre-existing essential hypertension complicating childbirth; O34.211 Maternal care for low transverse scar from previous cesarean delivery; O99.214 Obesity complicating childbirth; E66.01 Morbid (severe) obesity due to excess calories; Z30.2 Encounter for sterilization; Z79.82 Long term (current) use of aspirin; Z79.899 Other long term (current) drug therapy; Z91.018 Allergy to other foods; Z91.010 Allergy to peanuts
CPT/HCPCS: 36415; 59025; 59050; 81001; 82565; 83615; 84450; 84460; 84550; 85025; 85610; 85730; 86850; 86900; 86901; 88302; 88307; 94667; 94668; 96372; 96374; 96375; 96376; J0702; J2704